=== PATIENT | male | born 1950 | race Caucasian/White ===

== ENCOUNTER 2017-07-27 08:31 | Inpatient (IN) | payer OTHER, BC ==
[~2017-07-27] VITALS: Ht 170.2 cm; Wt 78.2 kg
[2017-07-27 09:19] LABS: HEMATOCRIT 41.9 % (38.0-50.0); HEMOGLOBIN 14.5 G/DL (12.5-16.6); MCH 30.1 PG (29.0-34.0); MCHC 34.6 G/DL (30.0-36.0); MCV 86.9 FL (86-99); PLATELET COUNT 225 K/uL (156-360); RBC DIS.WIDTH-CV 13.1 % (11.8-14.6); RBC DIS.WIDTH-SD 41.2 % (39-53); RED BLOOD COUNT 4.82 M/uL (4.00-5.50); WHITE BLOOD COUNT 16.5 K/uL (4.1-10.2)
[2017-07-27 09:32] LABS: CHLORIDE 98 mEq/L (99-109); POTASSIUM 4.1 mEq/L (3.7-5.4); SODIUM 137 mEq/L (136-147)
[2017-07-27 09:34] LABS: GLUCOSE 231 mg/dL (70-99)
[2017-07-27 09:38] LABS: CREATININE 1.2 mg/dL (0.6-1.3); GFR ESTIMATE (CALCULATED) > 59 mL/min/ (58.99-99999)
[2017-07-27 09:39] LABS: UREA NITROGEN (BUN) 16 mg/dL (9-23)
[2017-07-27 09:44] LABS: TROP-I INTERPRETATION NEGATIVE; TROPONIN-I < 0.01 ng/mL (0.0-0.30)
[2017-07-27] MEDS ORDERED: INCRUSE ELLI62.5 MCG IH (12:00)
[2017-07-27] MEDS ORDERED: LISINOPRIL-HCT1 EACH PO (12:00)
[2017-07-27] MEDS ORDERED: ATORVASTATIN CA10 MG PO (12:01)
[2017-07-27] MEDS ORDERED: METFORMIN HCL500 M1 PO (12:02)
[2017-07-27] MEDS ORDERED: ALBUTEROL2.5 MG/3 M IH (12:03)
[2017-07-27] MEDS ORDERED: VENTOLIN HFA18 GM IH (12:03)
[2017-07-27] MEDS ORDERED: MEN 50 PLUS MU1 EACH PO (12:04)
[2017-07-27] MEDS ORDERED: ADVAIR 250/501 DISK IH (12:04)
[2017-07-27 15:47] VITALS: BP 127/71
[2017-07-27 16:56] LABS: TROP-I INTERPRETATION NEGATIVE; TROPONIN-I 0.01 ng/mL (0.0-0.30)
[2017-07-27 23:14] VITALS: BP 110/57
[2017-07-27 23:26] LABS: TROP-I INTERPRETATION NEGATIVE; TROPONIN-I < 0.01 ng/mL (0.0-0.30)
[2017-07-28 03:34] VITALS: BP 109/56
[2017-07-28 07:02] LABS: HEMATOCRIT 36.6 % (38.0-50.0); HEMOGLOBIN 12.3 G/DL (12.5-16.6); MCH 29.7 PG (29.0-34.0); MCHC 33.6 G/DL (30.0-36.0); MCV 88.4 FL (86-99); PLATELET COUNT 215 K/uL (156-360); RBC DIS.WIDTH-CV 12.9 % (11.8-14.6); RBC DIS.WIDTH-SD 41.5 % (39-53); RED BLOOD COUNT 4.14 M/uL (4.00-5.50); WHITE BLOOD COUNT 12.3 K/uL (4.1-10.2)
[2017-07-28 07:10] LABS: CHLORIDE 101 MEQ/L (99-109); CREATININE 1.1 MG/DL (0.6-1.3); GFR ESTIMATE (CALCULATED) > 59 mL/min/ (58.99-99999); GLUCOSE 341 mg/dL (70-99); POTASSIUM 4.6 MEQ/L (3.7-5.4); SODIUM 137 MEQ/L (136-147)
[2017-07-28 07:18] LABS: UREA NITROGEN (BUN) 25 mg/dL (9-23)
[2017-07-28 07:58] VITALS: BP 107/57
[2017-07-28 12:00] VITALS: BP 126/69
[2017-07-28 16:11] VITALS: BP 116/63
[2017-07-28 19:53] VITALS: BP 135/71
[2017-07-28 23:35] VITALS: BP 104/59
[2017-07-29 03:51] VITALS: BP 118/60
[2017-07-29 06:55] LABS: BASOPHIL (%) 0.3 % (0-1); EOSINOPHIL (%) 0.8 % (0-5); EOSINOPHIL COUNT 0.1 K/uL (0-0.3); HEMATOCRIT 34.7 % (38.0-50.0); HEMOGLOBIN 11.4 G/DL (12.5-16.6); IMMATURE GRANULOCYTE (%) 0.5 % (0.0-0.7); LYMPHOCYTE (%) 21.7 % (15-42); LYMPHOCYTE COUNT 2.3 K/uL (1.0-2.8); MCH 29.7 PG (29.0-34.0); MCHC 32.9 G/DL (30.0-36.0); MCV 90.4 FL (86-99); MONOCYTE (%) 7.5 % (3-12); MONOCYTE COUNT 0.8 K/uL (0-0.8); NEUTROPHIL (%) 69.2 % (45-76); NEUTROPHIL COUNT 7.4 K/uL (1.8-6.4); PLATELET COUNT 223 K/uL (156-360); RBC DIS.WIDTH-SD 43.2 % (39-53); RED BLOOD COUNT 3.84 M/uL (4.00-5.50); WHITE BLOOD COUNT 10.7 K/uL (4.1-10.2)
[2017-07-29 07:15] LABS: ALKALINE PHOSPHATASE 33 IU/L (3-129); ALT (GPT) 37 IU/L (3-49); AST (GOT) 41 IU/L (2-34); CHLORIDE 102 MEQ/L (99-109); GFR ESTIMATE (CALCULATED) > 59 mL/min/ (58.99-99999); GLUCOSE 212 mg/dL (70-99); POTASSIUM 4.4 MEQ/L (3.7-5.4); SODIUM 138 MEQ/L (136-147); TOTAL BILIRUBIN 0.3 MG/DL (0.0-1.0); TOTAL PROTEIN 5.4 G/DL (6.4-8.3); UREA NITROGEN (BUN) 30 mg/dL (9-23)
[2017-07-29 07:51] VITALS: BP 122/68
[2017-07-29 11:08] VITALS: BP 139/67
[2017-07-29 16:05] VITALS: BP 156/74
[2017-07-29 19:47] VITALS: BP 142/80
[2017-07-29 23:44] VITALS: BP 125/63
[2017-07-30 03:44] VITALS: BP 121/70
[2017-07-30 06:45] LABS: BASOPHIL (%) 0.5 % (0-1); BASOPHIL COUNT 0.1 K/uL (0-0.1); EOSINOPHIL (%) 0 % (0-5); HEMATOCRIT 36.9 % (38.0-50.0); HEMOGLOBIN 12.3 G/DL (12.5-16.6); IMMATURE GRANULOCYTE (%) 2.2 % (0.0-0.7); LYMPHOCYTE (%) 11.8 % (15-42); LYMPHOCYTE COUNT 1.2 K/uL (1.0-2.8); MCH 29.7 PG (29.0-34.0); MCHC 33.3 G/DL (30.0-36.0); MCV 89.1 FL (86-99); MONOCYTE (%) 6.4 % (3-12); MONOCYTE COUNT 0.6 K/uL (0-0.8); NEUTROPHIL (%) 79.1 % (45-76); NEUTROPHIL COUNT 7.7 K/uL (1.8-6.4); PLATELET COUNT 241 K/uL (156-360); RBC DIS.WIDTH-CV 12.8 % (11.8-14.6); RED BLOOD COUNT 4.14 M/uL (4.00-5.50); WHITE BLOOD COUNT 9.7 K/uL (4.1-10.2)
[2017-07-30 07:05] LABS: ALBUMIN 3.4 G/DL (3.2-4.8); ALKALINE PHOSPHATASE 34 IU/L (3-129); ALT (GPT) 53 IU/L (3-49); AST (GOT) 37 IU/L (2-34); CHLORIDE 100 MEQ/L (99-109); GFR ESTIMATE (CALCULATED) > 59 mL/min/ (58.99-99999); GLUCOSE 257 mg/dL (70-99); POTASSIUM 5.1 MEQ/L (3.7-5.4); SODIUM 138 MEQ/L (136-147); TOTAL BILIRUBIN 0.3 MG/DL (0.0-1.0); TOTAL PROTEIN 6.2 G/DL (6.4-8.3); UREA NITROGEN (BUN) 25 mg/dL (9-23)
[2017-07-30 08:00] VITALS: BP 151/69
[2017-07-30 09:11] LABS: HEMOGLOBIN A1c (GLYCOHEMOGLOB) 8.2 % (Below 5.7)
[2017-07-30] MEDS ORDERED: METFORMIN HCL1000 MG PO (11:02)
[2017-07-30] MEDS ORDERED: PREDNISONE10 MG PO (11:03)
[2017-07-30] MEDS ORDERED: LEVAQUIN750 MG PO (11:04)
== END 2017-07-30 12:15 | disposition home or self-care (01) | DRG 189 ==
LOC: EME 08:31 → 5SOUTH 11:12 → EDOF 11:12 → ENRESERV 11:13 → EDOF 11:25 → ENRESERV 14:48 → 5SOUTH 15:28
PROVIDERS: Emergency Medicine; Hospitalist; Internal Medicine
DX: J96.21 Acute and chronic respiratory failure with hypoxia (principal); J15.9 Unspecified bacterial pneumonia; J44.0 Chronic obstructive pulmonary disease with (acute) lower respiratory infection; J44.1 Chronic obstructive pulmonary disease with (acute) exacerbation; E11.9 Type 2 diabetes mellitus without complications; I10 Essential (primary) hypertension; Z87.891 Personal history of nicotine dependence; Z99.81 Dependence on supplemental oxygen
CPT/HCPCS: 71045; 71275; 80048; 80053; 82948; 83036; 83605; 84484; 85025; 85027; 85379; 87040; 87070; 87205; 87449; 87502; 93005; 94640; 94640 76; 94799; 99202; 99281; 99285; J0456; J0696; J1650; J1815; J7030; J7512